=== PATIENT | male | born 1965 | race Hispanic/Latino ===

== ENCOUNTER → 2025-10-02 | Outpatient (CLI) | payer BC ==
[~2025-10-02] MED LIST: GADOTERATE MEGLUMINE 10 MMOL/20 ML VIAL IV ONE
--- NOTE | 2025-10-02 18:38 | HMCIMG ---
STUDY: MR Abdomen Without IV Contrast / MRCP. HISTORY: R93.2 ??? Abnormal findings on diagnostic imaging of liver and biliary tract. TECHNIQUE: Multisequence, multiplanar magnetic resonance imaging of the abdomen performed without intravenous contrast, including axial and coronal SSFSE, axial 3D dual-echo, axial T2 fat-saturated, axial diffusion-weighted imaging (b = 500), and 3D MRCP sequences. COMPARISON: None provided. FINDINGS: Lower Thorax: Lung bases clear. No pleural effusion. Liver: Normal size and contour. Homogeneous parenchymal signal. No focal hepatic lesion demonstrated. No intrahepatic biliary ductal dilatation. Gallbladder and Bile Ducts: A 3.1 ??? 2.7 cm intraluminal gallbladder calculus is present. Additional hypointense material consistent with sludge is noted. Multiple tiny (1???2 mm) hypointense mural foci are adherent to the anterior and posterior gallbladder [place], most compatible with gallbladder polyps; less likely adherent sludge. Gallbladder wall is not thickened. No pericholecystic fluid. Common bile duct measures 0.3 cm in maximal diameter with smooth distal tapering at the ampulla. No choledocholithiasis identified. Pancreas: Normal size and signal intensity. No ductal dilatation. No focal lesion. Spleen: Normal in size and signal. No focal splenic lesion. Adrenal Glands: Right adrenal gland demonstrates a 2.7 ??? 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 Left adrenal gland contains a 3.1 ??? 3.5 cm heterogeneous lesion with mixed soft tissue and macroscopic fat signal, compatible with a lipid-rich adrenal lesion such as myelolipoma; no features of hemorrhage or invasive behavior. Kidneys: Normal renal size and parenchymal signal. No hydronephrosis, mass, or perinephric abnormality. Stomach and Bowel: Limited noncontrast evaluation shows no evidence of obstruction or acute inflammatory process. Lymph Nodes: No abdominal lymphadenopathy. Vasculature: Abdominal aorta normal in caliber. No aneurysm. IMPRESSION: * Cholelithiasis with a dominant 3.1 ??? 2.7 cm gallbladder calculus and associated sludge; additional tiny (1???2 mm) mural foci most compatible with gallbladder polyposis. * Normal-caliber common bile duct without choledocholithiasis. * Bilateral adrenal fat-containing lesions consistent with myelolipomas (right 2.7 ??? 2.3 cm; left 3.1 ??? 3.5 cm). * No acute intra-abdominal abnormality. /[place]
== END | disposition home or self-care (01) ==
LOC: RAH 07:31
PROVIDERS: ATTEND Internal Medicine Gastroenterology
DX: K80.20 Calculus of gallbladder without cholecystitis without obstruction (principal); R93.2 Abnormal findings on diagnostic imaging of liver and biliary tract
CPT/HCPCS: 74183; A9575